=== PATIENT | male | born 1995 | race Caucasian/White ===

== ENCOUNTER 2019-11-14 20:45 | Emergency (ER) | payer MEDICAID ==
[~2019-11-14] VITALS: Ht 175.3 cm; Wt 70.8 kg
[2019-11-14 20:47] VITALS: BP 128/72
[2019-11-14] MEDS ORDERED: PERCOCET 10-321 EAC1 PO (20:51)
[2019-11-14] MEDS ORDERED: TRAZODONE HCL100 MG PO (20:52)
[2019-11-14] MEDS ORDERED: GABAPENTIN100 MG PO (20:52)
[2019-11-14] MEDS ORDERED: CELEXA 20 MG TA20 MG PO (20:52)
[2019-11-14] MEDS ORDERED: ATIVAN1 M1 PO (20:53)
[2019-11-14] MEDS ORDERED: ROBAXIN 750 MG750 MG PO (20:53)
[2019-11-14 21:20] LABS: ABSOLUTE BASOPHILS 0.1 thou/uL (0.0-0.2); ABSOLUTE EOSINOPHILS 0.2 thou/uL (0.0-0.7); ABSOLUTE LYMPHOCYTES 1.1 thou/uL (0.8-5.3); ABSOLUTE MONOCYTES 0.8 thou/uL (0.0-1.2); ABSOLUTE NEUTROPHILS 7.3 thou/uL (1.6-8.1); BASOPHILS 0.6 %; EOSINOPHILS 2.6 %; HEMATOCRIT 37.1 % (42.0-52.0); HEMOGLOBIN 12.7 gm/dL (14.0-18.0); MCH 28.4 pg (26.0-34.0); MCHC 34.3 g/dL (28.0-37.0); MCV 82.9 fL (80.0-100.0); MONOCYTES 8.1 %; MPV 8.5 fl. (7.2-11.1); NUCLEATED RBCS 0 /100WBC; PLATELET COUNT* 202 thou/uL (150-400); POLYS 76.7 %; RBC 4.48 mil/uL (4.50-6.00); RDW-CV 15.7 % (10.5-14.5); WBC 9.5 thou/uL (4.0-11.0)
[2019-11-14 21:30] LABS: ANION GAP < 0 mmol/L (7-16); BUN 11 mg/dL (7-18); CALCIUM 8.5 mg/dL (8.5-10.1); CHLORIDE 100 mmol/L (98-107); CO2 36 mmol/L (21-32); CREATININE 0.8 mg/dL (0.6-1.3); GLUCOSE 123 mg/dL (70-99); POTASSIUM 4.6 mmol/L (3.5-5.1); SODIUM 135 mmol/L (136-145)
[2019-11-14 21:40] LABS: ALBUMIN 3.9 g/dL (3.4-5.0); ALKALINE PHOSPHATASE 65 U/L (46-116); SGOT 18 U/L (15-37); SGPT 25 U/L (30-65); TOTAL BILIRUBIN 0.2 mg/dL (<0.1-1.0); TOTAL PROTEIN 7.1 g/dL (6.4-8.2)
[2019-11-14] MEDS ORDERED: BUSPIRONE HCL10 MG PO (21:46)
[2019-11-14] MEDS ORDERED: ZYPREXA5 MG PO (21:47)
[2019-11-14] MEDS ORDERED: ZYPREXA15 MG PO (21:47)
[2019-11-14] MEDS ORDERED: ENBRACE HR SOF1 EACH PO (21:48)
[2019-11-14] MEDS ORDERED: FENTANYL1 EAC4 TRANSDERM (21:49)
[2019-11-14] MEDS ORDERED: MELATONIN10 M3 PO (21:49)
--- NOTE | 2019-11-14 21:49 | NUR ---
FENTANYL PATCH REMOVED FROM PT
[2019-11-14 23:19] LABS: ALCOHOL < 10 mg/dL (<10); SALICYLATE 3.4 mg/dL (2.8-20.0)
[2019-11-14 23:24] LABS: ACETAMINOPHEN < 2 ug/mL (10-30)
[2019-11-14 23:30] VITALS: BP 112/68
== END 2019-11-14 23:30 | disposition left against medical advice (07) ==
LOC: M.ERS 20:45 → M.TBA-ER 22:38 → M.ERS 23:30
PROVIDERS: Personal Emergency Response Attendant
DX: T40.2X1A Poisoning by other opioids, accidental (unintentional), initial encounter (principal); R51 Headache; F11.10 Opioid abuse, uncomplicated; Z79.899 Other long term (current) drug therapy; Y92.89 Other specified places as the place of occurrence of the external cause